=== PATIENT | female | born 1940 | race Caucasian/White ===

== ENCOUNTER 2016-06-13 07:50 | Emergency (ER) | payer MEDICARE, BC ==
[2016-06-13 08:47] VITALS: BP 150/64
--- NOTE | 2016-06-13 09:22 | EDM.PDOC ---
ED HPI DIZZINESS - General Chief Complaint: ENT Problem Stated Complaint: [id number] TOOTH EXTRACTION INFECTION Time Seen by Provider: 06/13/16 09:16 Source of Information: Reports: Patient Exam Limitations: Reports: No limitations - History of Present Illness INITIAL COMMENTS - FREE TEXT/NARRATIVE: Right mandibular molar removed 2 days ago. No prescriptions provided by her dentist. Pain increased since yesterday. Has taken Tylenol 500 mg every 2 hours since last night only. She has not noticed any facial swelling and has had no fever. No viral URI symptoms. Non-smoker. 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 - Related Data Allergies/ADRs: Allergies Allergy/AdvReac Type Severity Reaction Status Date / Time No Known Allergies Allergy Verified 06/13/16 08:55 Home Meds: Home Meds Amoxicillin [Amoxil] 875 mg PO Q12HR #14 tablet 06/13/16 [Rx] Past Medical History - Past Health History Medical/Surgical History: Denies Medical/Surgical History HEENT History: Reports: None Dermatologic History: Reports: Benign melanoma - Past Surgical History HEENT Surgical History: Reports: Oral surgery Other HEENT Surgeries/Procedures: patient had molar extraction 2 days ago Social & Family History - Tobacco Use Smoking Status *Q: Never Smoker Second Hand Smoke Exposure: No - Caffeine Use Caffeine Use: Reports: Coffee - Recreational Drug Use Recreational Drug Use: No ED ROS GENERAL - Review of Systems Review Of Systems: See Below Constitutional: Denies: fever HEENT: Reports: Dental pain, Other (extraction site at right second mandibular molar with small thrombus. No purulence). Denies: Ear pain, Throat pain Respiratory: Reports: No Symptoms ED EXAM, DIZZINESS - Physical Exam Exam: See Below Exam Limited By: No limitations Eye Exam: bilateral eye: normal inspection (conjunctiva moist) Ears: normal external exam Nose: normal inspection Throat/Mouth: Normal lips, Normal voice (normal oral exam, except evidence of recent tooth extraction at right mandibular 2nd moral.) Head Exam: atraumatic, normocephalic Neck: normal inspection, supple, non-tender, full range of motion Neurological: alert, normal mood/affect (normal gait) Psychiatric: normal affect, normal mood Skin Exam: Warm Course - Vital Signs Last Recorded V/S: Last Vital Signs Temp 97.4 F 06/13/16 08:35 Pulse 78 06/13/16 08:35 Resp 16 06/13/16 08:35 BP 150/64 H 06/13/16 08:35 Pulse Ox 100 06/13/16 08:35 - Orders/Labs/Meds Meds: Medications Discontinued Medications Generic Name Dose Route Start Last Admin Trade Name Danna PRN Reason Stop Dose Admin Morphine Sulfate 6 mg 06/13/16 09:29 06/13/16 09:44 Morphine IM 06/13/16 09:30 6 mg ONETIME ONE Administration - Re-Assessments/Exams Free Text/Narrative Re-Assessment/Exam: 06/13/16 09:34 Because of pain I ordered morphine 6 mg for stated weight of 127 pounds Departure - Departure Time of Disposition: 10:10 Disposition: Home, Self-Care 01 Condition: good Clinical Impression: Pain, dental Prescriptions: Amoxicillin [Amoxil] 875 mg PO Q12HR #14 tablet Instructions: Dental Dry Socket, [id number] Forms: ED Department Discharge
[2016-06-13] MEDS ORDERED: Morphine 10 MG/ML Syringe IM ONE (09:29)
== END 2016-06-13 10:30 | disposition home or self-care (01) ==
LOC: DL.ED 07:50
DX: K08.89 Other specified disorders of teeth and supporting structures (principal); Z98.890 Other specified postprocedural states
CPT/HCPCS: 96372; 99282; J2270; 99284

== ENCOUNTER 2017-05-05 07:32 | Day surgery (SDC) | payer MEDICARE, BC ==
[~2017-05-05 07:32] MED LIST: Acetaminophen 325 MG Tab PO PRN; Cataract Ophth Solution EYELF ONE; Moxifloxacin 0.5% Ophth Soln 3 ML Bottle EYELF ONE; Ondansetron 4 MG/2 ML SDV IVPUSH PRN; Phenylephrine 10% Ophth Soln 5 ML Bot EYELF ONE; Phenylephrine 10% Ophth Soln 5 ML Bot EYELF PRN; Povidone-Iodine 5% Sterile Ophth Soln 30 ML Bottle EYELF ONE; Proparacaine 0.5% Ophth Soln 15 ML Bottle EYELF ONE; Sodium Chloride 0.9% 10 ML Syringe FLUSH PRN; Timolol Maleate 0.5% Ophth Soln 5 ML Bottle EYELF ONE
[2017-05-05] MEDS ORDERED: Dexamethasone 4 MG/ML SDV IV ONE (07:33)
[2017-05-05] MEDS ORDERED: Sodium Chloride 0.9% 10 ML Syringe IV ONE (07:33)
[2017-05-05] MEDS ORDERED: Midazolam 1 MG/ML 2 ML SDV IV ONE (07:33)
[2017-05-05] MEDS ORDERED: Tetracaine HCl/PF 0.5% 4 ML Bottle EYELF ONE (08:42)
[2017-05-05] MEDS ORDERED: Povidone-Iodine 5% Sterile Ophth Soln 30 ML Bottle EYELF ONE (08:43)
[2017-05-05] MEDS ORDERED: Apraclonidine 0.5% Ophth Soln 5 ML Bot EYELF ONE (08:43)
[2017-05-05] MEDS ORDERED: Dexamethasone/Neomycin/Polymyxin B Ophth Oint 3.5 GM Tube EYELF ONE (08:44)
[2017-05-05] MEDS ORDERED: Lidocaine 1% 30 ML SDV ONE (08:44)
[2017-05-05] MEDS ORDERED: Vancomycin 500 MG SDV EYELF ONE (08:44)
[2017-05-05] MEDS ORDERED: Chondroitin Sulfate/Hyaluronate Sodium Ophth Inj 0.75 ML Syringe EYELF ONE (08:45)
[2017-05-05] MEDS ORDERED: Balanced Salt Solution Ophth Irrig 500 ML Bottle IOCULAR ONE (08:45)
--- NOTE | 2017-05-05 09:25 | OR ---
DATE: 05/05/2017 PREOPERATIVE DIAGNOSIS: Visually significant mixed cataract, left eye. POSTOPERATIVE DIAGNOSIS: Visually significant mixed cataract, left eye. PROCEDURE: Extracapsular cataract extraction with intraocular lens implant, left eye. ANESTHESIA: Topical/local MAC. COMPLICATIONS: None. INDICATION: Ms. Miller was seen in the clinic. She has complained of difficulty seeing images, difficulty reading, difficulty at distance. Clinical examination reveals visually significant mixed cataract. I explained options. I offered cataract surgery and I explained risks. She is symptomatic and requested surgery to improve vision and function. We discussed implant options. She has requested a monofocal implant. OPERATIVE DESCRIPTION: After informed consent was obtained and the risks, benefits, and alternatives were explained, the patient was brought to the operative suite and topical anesthesia was administered. The patient was then prepped and draped in the sterile fashion and attention was placed on the left eye. A sterile lid speculum was placed into the left eye to allow operative exposure. A full-thickness paracentesis was made in the temporal portion of the operative eye. Preservative-free lidocaine 0.1 mL was injected into the anterior chamber followed by viscoelastic. A full-thickness corneal incision was then made into the anterior chamber. A bent needle cystotome was used to create a small antionette in the anterior capsule. The capsulorrhexis forceps was then used to create a 360-degree curvilinear capsulorrhexis. The nucleus was then removed using a phacoemulsification handpiece and the remaining cortical material was then removed with irrigation and aspiration handpiece. Following removal of the cortical material, the capsular bag was then inspected and noted to be free of any holes or tears. Viscoelastic was then injected into the capsular bag and the intraocular lens was inserted into the capsular bag. The viscoelastic material was then removed from both the anterior and posterior chambers and from behind the IOL. The lens and capsular bag were then reinspected. The IOL was well centered and the capsular bag intact. The wound and paracentesis sites were inspected and hydrated with balanced saline solution. Both were found to be self- sealing. The intraocular pressure was assessed digitally and found to be within normal range. A good red reflex was noted at the completion of the procedure. No complications occurred during the operation. At the completion of the procedure, Maxitrol, Voltaren, and Iopidine drops were placed into the operative eye. A sterile eye shield was placed over the operative eye and the patient was transported to the postoperative recovery area having tolerated the procedure well. Postoperative instructions were given along with a postoperative appointment. The patient was advised to call with any questions or concerns. No complications occurred. [facility] /[id number]
[2017-05-05 13:27] VITALS: BP 114/50
== END 2017-05-05 09:57 | disposition home or self-care (01) ==
LOC: DL.SDS 07:32
PROVIDERS: ATTEND Ophthalmology
DX: H25.812 Combined forms of age-related cataract, left eye (principal); I10 Essential (primary) hypertension; E11.9 Type 2 diabetes mellitus without complications; Z79.84 Long term (current) use of oral hypoglycemic drugs; Z79.899 Other long term (current) drug therapy
CPT/HCPCS: 66984; 82962; A9270; C1780; J1100; J2250; J3370; J7050; 00142

== ENCOUNTER 2017-05-12 07:19 | Day surgery (SDC) | payer MEDICARE, BC ==
[2017-05-12] MEDS ORDERED: Ondansetron 4 MG/2 ML SDV IV ONE (07:20)
[2017-05-12] MEDS ORDERED: Dexamethasone 4 MG/ML SDV IV ONE (07:20)
[2017-05-12] MEDS ORDERED: Midazolam 1 MG/ML 2 ML SDV IV ONE (07:20)
[2017-05-12] MEDS ORDERED: Sodium Chloride 0.9% 10 ML Syringe IV ONE (07:20)
[2017-05-12] MEDS ORDERED: Acetaminophen 325 MG Tab PO PRN (07:30)
[2017-05-12] MEDS ORDERED: Moxifloxacin 0.5% Ophth Soln 3 ML Bottle EYERT ONE (07:30)
[2017-05-12] MEDS ORDERED: Sodium Chloride 0.9% 10 ML Syringe FLUSH PRN (07:30)
[2017-05-12] MEDS ORDERED: Timolol Maleate 0.5% Ophth Soln 5 ML Bottle EYERT ONE (07:30)
[2017-05-12] MEDS ORDERED: Phenylephrine 10% Ophth Soln 5 ML Bot EYERT ONE (07:30)
[2017-05-12] MEDS ORDERED: Ondansetron 4 MG/2 ML SDV IVPUSH PRN (07:30)
[2017-05-12] MEDS ORDERED: Cataract Ophth Solution EYERT ONE (07:30)
[2017-05-12] MEDS ORDERED: Phenylephrine 10% Ophth Soln 5 ML Bot EYERT PRN (07:30)
[2017-05-12] MEDS ORDERED: Proparacaine 0.5% Ophth Soln 15 ML Bottle EYERT ONE (07:30)
[2017-05-12] MEDS ORDERED: Povidone-Iodine 5% Sterile Ophth Soln 30 ML Bottle EYERT ONE ×2 (07:30→08:57)
[2017-05-12] MEDS ORDERED: Tetracaine HCl/PF 0.5% 4 ML Bottle EYERT ONE (08:56)
[2017-05-12] MEDS ORDERED: Apraclonidine 0.5% Ophth Soln 5 ML Bot EYERT ONE (08:58)
[2017-05-12] MEDS ORDERED: Lidocaine 1% 30 ML SDV ONE (08:58)
[2017-05-12] MEDS ORDERED: Chondroitin Sulfate/Hyaluronate Sodium Ophth Inj 0.75 ML Syringe EYERT ONE (08:59)
[2017-05-12] MEDS ORDERED: Dexamethasone/Neomycin/Polymyxin B Ophth Oint 3.5 GM Tube EYERT ONE (08:59)
[2017-05-12] MEDS ORDERED: Vancomycin 500 MG SDV EYERT ONE (08:59)
[2017-05-12] MEDS ORDERED: Balanced Salt Solution Plus Ophth Irrig 500 ML Bottle IOCULAR ONE (09:00)
--- NOTE | 2017-05-12 09:39 | OR ---
DATE: 05/12/2017 PREOPERATIVE DIAGNOSIS: Visually significant mixed cataract, right eye. POSTOPERATIVE DIAGNOSIS: Visually significant mixed cataract, right eye. PROCEDURE: Extracapsular cataract extraction with intraocular lens implant, right eye. ANESTHESIA: Topical/local MAC. COMPLICATIONS: None. INDICATION: Ms. Miller was seen in the clinic. She has complained of a slow progressive change in vision, difficulty sewing, and difficulty reading. Clinical examination reveals visually significant cataract and corneal guttata. I explained options. I offered cataract surgery, and I explained risks including, but not limited to, infection, retinal detachment, loss of vision, corneal decompensation, and need for additional surgery amongst others. We discussed implant options, and I recommended a monofocal implant. She has voiced an understanding with respect to risks. She is symptomatic and unhappy with her vision. She has requested cataract surgery. OPERATIVE DESCRIPTION: After informed consent was obtained and the risks, benefits, and alternatives were explained, the patient was brought to the operative suite and topical anesthesia was administered. The patient was then prepped and draped in the sterile fashion and attention was placed on the right eye. A sterile lid speculum was placed into the right eye to allow operative exposure. A full-thickness paracentesis was made in the temporal portion of the operative eye. Preservative-free lidocaine 0.1 mL was injected into the anterior chamber followed by viscoelastic. A full-thickness corneal incision was then made into the anterior chamber. A bent needle cystotome was used to create a small antionette in the anterior capsule. The capsulorrhexis forceps was then used to create a 360-degree curvilinear capsulorrhexis. The nucleus was then removed using a phacoemulsification handpiece and the remaining cortical material was then removed with irrigation and aspiration handpiece. Following removal of the cortical material, the capsular bag was then inspected and noted to be free of any holes or tears. Viscoelastic was then injected into the capsular bag and the intraocular lens was inserted into the capsular bag. The viscoelastic material was then removed from both the anterior and posterior chambers and from behind the IOL. The lens and capsular bag were then reinspected. The IOL was well centered and the capsular bag intact. The wound and paracentesis sites were inspected and hydrated with balanced saline solution. Both were found to be self- sealing. The intraocular pressure was assessed digitally and found to be within normal range. A good red reflex was noted at the completion of the procedure. No complications occurred during the operation. At the completion of the procedure, Maxitrol, Voltaren, and Iopidine drops were placed into the operative eye. A sterile eye shield was placed over the operative eye and the patient was transported to the postoperative recovery area having tolerated the procedure well. Postoperative instructions were given along with a postoperative appointment. The patient was advised to call with any questions or concerns. [facility] /[id number]
[2017-05-12 10:33] VITALS: BP 123/52
== END 2017-05-12 10:12 | disposition home or self-care (01) ==
LOC: DL.SDS 07:19
PROVIDERS: ATTEND Ophthalmology
DX: H25.811 Combined forms of age-related cataract, right eye (principal); I10 Essential (primary) hypertension; E11.36 Type 2 diabetes mellitus with diabetic cataract; E78.1 Pure hyperglyceridemia; E78.5 Hyperlipidemia, unspecified; Z79.84 Long term (current) use of oral hypoglycemic drugs; Z79.899 Other long term (current) drug therapy
CPT/HCPCS: 66984; A9270; J1100; J2250; J2405; J3370; J7050; 00142; V2632

== ENCOUNTER 2018-07-15 18:01 | Emergency (ER) | payer MEDICARE, BC ==
[2018-07-15] MEDS ORDERED: Sodium Chloride 0.9% 10 ML Syringe FLUSH PRN (18:15)
[2018-07-15 18:23] VITALS: BP 142/57
[2018-07-15 18:41] LABS: ANION GAP 16.5; CHLORIDE,CL 101 mmol/L (101-111); SODIUM,NA 135 mmol/L (135-145)
--- NOTE | 2018-07-15 18:57 | EDM.PDOC ---
ED HPI GENERAL MEDICAL PROBLEM - General Chief Complaint: Neurological Problem Stated Complaint: disorientated Time Seen by Provider: 07/15/18 18:24 Source of Information: Reports: Family, RN, RN Notes Reviewed History Limitations: Reports: Altered Mental Status - History of Present Illness INITIAL COMMENTS - FREE TEXT/NARRATIVE: Pt to ER per wheelchair with daughter. Daughter states the patient suddenly c/o pain, but could not tell her daughter where she had pain. Dgt states the patient continues to repeat "I don't know" when asked questions, and has had her eyes closed. Upon arrival, patient states "I don't know" several times, and is not obeying command. Dgt denies any trauma. Last known well approximately 25 minutes prior to arrival. Patient was at [facility] with dgt and normal without c/o. Onset: Today, Sudden - Related Data Allergies Allergy/AdvReac Type Severity Reaction Status Date / Time No Known Allergies Allergy Verified 05/12/17 07:44 Home Meds: Home Meds Estradiol 2 mg PO DAILY 05/03/17 [History] Gabapentin [Neurontin] 300 mg PO ASDIRECTED 05/03/17 [History] LORazepam 1 mg PO BID PRN 05/03/17 [History] Lisinopril 5 mg PO BEDTIME 05/03/17 [History] Multivitamin [Multivitamins] 1 tab PO DAILY 05/03/17 [History] Temazepam 1 tab PO BEDTIME PRN 05/03/17 [History] Tretinoin [Retin-A 0.025% Cream] 1 squirt TOP BEDTIME 05/03/17 [History] amLODIPine [Norvasc] 5 mg PO DAILY 05/03/17 [History] hydroCHLOROthiazide [Hydrochlorothiazide] 25 mg PO DAILY 05/03/17 [History] metFORMIN [Glucophage] 1 tab PO BID 05/03/17 [History] Gwpe-Awzy-Gybby [Cataract Opthalmic Solution] 1 drop EYEBOTH ASDIRECTED [History] Past Medical History - Past Health History Medical/Surgical History: Denies Medical/Surgical History HEENT History: Reports: Cataract Cardiovascular History: Reports: High Cholesterol, Hypertension Respiratory History: Reports: None Gastrointestinal History: Reports: None Genitourinary History: Reports: None 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: Musculoskeletal History: Reports: None Neurological History: Reports: Neuropathy, Peripheral, Other (See Below) Other Neuro History: restless leg syndrome Psychiatric History: Reports: Depression Endocrine/Metabolic History: Reports: Diabetes, Type II, Osteopenia Hematologic History: Reports: None Immunologic History: Reports: None Oncologic (Cancer) History: Reports: None Dermatologic History: Reports: Benign Melanoma - Infectious Disease History Infectious Disease History: Reports: Chicken Pox, Measles, Mumps - Past Surgical History Head Surgeries/Procedures: Reports: None HEENT Surgical History: Reports: Cataract Surgery, Oral Surgery Other HEENT Surgeries/Procedures: patient had molar extraction 2 days ago Cardiovascular Surgical History: Reports: None Respiratory Surgical History: Reports: None GI Surgical History: Reports: Appendectomy, Colonoscopy, Other (See Below) Other GI Surgeries/Procedures: abdominoplasty Female Surgical History: Reports: Hysterectomy, Tubal Ligation Neurological Surgical History: Reports: None Musculoskeletal Surgical History: Reports: Carpal Tunnel, Shoulder Surgery Social & Family History - Tobacco Use Smoking Status *Q: Never Smoker - Caffeine Use Caffeine Use: Reports: Coffee Other Caffeine Use: 1.5 cups daily - Recreational Drug Use Recreational Drug Use: No ED ROS GENERAL - Review of Systems Review Of Systems: ROS reveals no pertinent complaints other than HPI. ED EXAM, NEURO - Physical Exam Exam: See Below Exam Limited By: Altered Mental Status General Appearance: Moderate Distress (hyperventilating) Eye Exam: Bilateral Eye: EOMI, PERRL (3 sluggish) Ears: Normal External Exam, Normal Canal, Hearing Grossly Normal, Normal TMs Nose: Normal Inspection, Normal Mucosa, No Blood Throat/Mouth: Normal Inspection, Normal Voice, No Airway Compromise Head Exam: Atraumatic, Normocephalic Neck: Normal Inspection, Supple, Non-Tender Respiratory/Chest: No Respiratory Distress, Lungs Clear, Normal Breath Sounds, No Accessory Muscle Use, Chest Non-Tender, Other (tachypneic) Cardiovascular: Normal Peripheral Pulses, Regular Rate, Rhythm, No Edema, No Gallop, No JVD, No Murmur, No Rub GI/Abdominal: Normal Bowel Sounds, Soft, Non-Tender, No Organomegaly, No Distention, No Abnormal Bruit, No Mass (Female) Exam: Deferred Rectal (Female) Exam: Deferred Neurological: Abnormal Gait, Withdraws to Pain, Abnormal Light Touch Back Exam: Normal Inspection Extremities: Normal Inspection Psychiatric: Anxious Skin Exam: Warm, Dry, Intact, Normal Color, No Rash Course - Vital Signs Last Recorded V/S: Last Vital Signs Temp 97.3 F 07/15/18 18:22 Pulse 70 07/15/18 18:22 Resp 22 H 07/15/18 18:22 BP 142/57 H 07/15/18 18:22 Pulse Ox 100 07/15/18 18:22 - Orders/Labs/Meds Labs: Laboratory Tests 07/15/18 07/15/18 07/15/18 Range/Units 18:11 18:15 18:15 WBC 9.5 (5.0-10.0) 10^3/uL RBC 4.29 (4.2-5.4) 10^6/uL Hgb 13.5 (12.0-16.0) g/dL Hct 39.0 (37.0-47.0) % MCV 90.9 (80-100) fL MCH 31.5 (27.0-34.0) pg MCHC 34.6 (33.0-35.0) g/dL Plt Count 272 (150-450) 10^3/uL Neut % (Auto) 53.1 (42.2-75.2) % Lymph % (Auto) 36.9 (20.5-50.1) % Riley % (Auto) 7.9 (2-8) % Eos % (Auto) 1.9 (1.0-3.0) % Baso % (Auto) 0.2 (0.0-1.0) % PT (9.0-12.0) SEC INR (0.9-1.2) Sodium 135 (135-145) mmol/L Potassium 3.5 L (3.6-5.0) mmol/L Chloride 101 (101-111) mmol/L Carbon Dioxide 21.0 (21.0-31.0) mmol/L Anion Gap 16.5 BUN 13 (7-18) mg/dL Creatinine 0.8 (0.6-1.3) mg/dL Est Cr Clr Drug Dosing 53.83 mL/min Estimated GFR (MDRD) > 60 BUN/Creatinine Ratio 16.25 Glucose 139 H (74-105) mg/dL POC Glucose 143 H (83-110) mg/dl Calcium 9.1 (8.4-10.2) mg/dl Total Bilirubin 0.8 (0.2-1.0) mg/dL AST 21 (10-42) IU/L ALT 20 (10-60) IU/L Alkaline Phosphatase 73 (42-121) IU/L Troponin I (0.00-0.02) ng/ml Total Protein 7.2 (6.7-8.2) g/dl Albumin 3.9 (3.2-5.5) g/dl Globulin 3.3 Albumin/Globulin Ratio 1.18 Urine Color (YELLOW) Urine Appearance (CLEAR) Urine pH (5.0-9.0) Ur Specific [place] (1.005-1.030) Urine Protein (NEGATIVE) Urine Glucose (UA) (NEGATIVE) Urine Ketones (NEGATIVE) Urine Occult Blood (NEGATIVE) Urine Nitrite (NEGATIVE) Urine Bilirubin (NEGATIVE) Urine Urobilinogen (0.2-1.0) mg/dL Ur Leukocyte Esterase (NEGATIVE) Urine RBC /HPF Urine WBC (0-5/HPF) /HPF Ur Epithelial Cells (NOT SEEN) /HPF Urine Bacteria (0-FEW/HPF) /HPF Urine Mucus (NOT SEEN) /LPF Urine Opiates Screen (NEGATIVE) Ur Oxycodone Screen (NEGATIVE) Urine Methadone Screen (NEGATIVE) Ur Barbiturates Screen (NEGATIVE) U Tricyclic Antidepress (NEGATIVE) Ur Phencyclidine Scrn (NEGATIVE) Ur Amphetamine Screen (NEGATIVE) U Methamphetamines Scrn (NEGATIVE) Urine MDMA Screen (NEGATIVE) U Benzodiazepines Scrn (NEGATIVE) Urine Cocaine Screen (NEGATIVE) U Marijuana (THC) Screen (NEGATIVE) Ethyl Alcohol < 5 mg/dL 07/15/18 07/15/18 07/15/18 Range/Units 18:15 18:15 18:31 WBC (5.0-10.0) 10^3/uL RBC (4.2-5.4) 10^6/uL Hgb (12.0-16.0) g/dL Hct (37.0-47.0) % MCV (80-100) fL MCH (27.0-34.0) pg MCHC (33.0-35.0) g/dL Plt Count (150-450) 10^3/uL Neut % (Auto) (42.2-75.2) % Lymph % (Auto) (20.5-50.1) % Riley % (Auto) (2-8) % Eos % (Auto) (1.0-3.0) % Baso % (Auto) (0.0-1.0) % PT 9.4 (9.0-12.0) SEC INR 0.9 (0.9-1.2) Sodium (135-145) mmol/L Potassium (3.6-5.0) mmol/L Chloride (101-111) mmol/L Carbon Dioxide (21.0-31.0) mmol/L Anion Gap BUN (7-18) mg/dL Creatinine (0.6-1.3) mg/dL Est Cr Clr Drug Dosing mL/min Estimated GFR (MDRD) BUN/Creatinine Ratio Glucose (74-105) mg/dL POC Glucose (83-110) mg/dl Calcium (8.4-10.2) mg/dl Total Bilirubin (0.2-1.0) mg/dL AST (10-42) IU/L ALT (10-60) IU/L Alkaline Phosphatase (42-121) IU/L Troponin I < 0.02 (0.00-0.02) ng/ml Total Protein (6.7-8.2) g/dl Albumin (3.2-5.5) g/dl Globulin Albumin/Globulin Ratio Urine Color Yellow (YELLOW) Urine Appearance Slightly cloudy (CLEAR) Urine pH 7.5 (5.0-9.0) Ur Specific [place] 1.015 (1.005-1.030) Urine Protein Negative (NEGATIVE) Urine Glucose (UA) Negative (NEGATIVE) Urine Ketones Trace H (NEGATIVE) Urine Occult Blood Negative (NEGATIVE) Urine Nitrite Negative (NEGATIVE) Urine Bilirubin Negative (NEGATIVE) Urine Urobilinogen 0.2 (0.2-1.0) mg/dL Ur Leukocyte Esterase Small H (NEGATIVE) Urine RBC 0-5 /HPF Urine WBC 5-10 H (0-5/HPF) /HPF Ur Epithelial Cells Moderate H (NOT SEEN) /HPF Urine Bacteria Moderate H (0-FEW/HPF) /HPF Urine Mucus Many H (NOT SEEN) /LPF Urine Opiates Screen (NEGATIVE) Ur Oxycodone Screen (NEGATIVE) Urine Methadone Screen (NEGATIVE) Ur Barbiturates Screen (NEGATIVE) U Tricyclic Antidepress (NEGATIVE) Ur Phencyclidine Scrn (NEGATIVE) Ur Amphetamine Screen (NEGATIVE) U Methamphetamines Scrn (NEGATIVE) Urine MDMA Screen (NEGATIVE) U Benzodiazepines Scrn (NEGATIVE) Urine Cocaine Screen (NEGATIVE) U Marijuana (THC) Screen (NEGATIVE) Ethyl Alcohol mg/dL 07/15/18 Range/Units 18:31 WBC (5.0-10.0) 10^3/uL RBC (4.2-5.4) 10^6/uL Hgb (12.0-16.0) g/dL Hct (37.0-47.0) % MCV (80-100) fL MCH (27.0-34.0) pg MCHC (33.0-35.0) g/dL Plt Count (150-450) 10^3/uL Neut % (Auto) (42.2-75.2) % Lymph % (Auto) (20.5-50.1) % Riley % (Auto) (2-8) % Eos % (Auto) (1.0-3.0) % Baso % (Auto) (0.0-1.0) % PT (9.0-12.0) SEC INR (0.9-1.2) Sodium (135-145) mmol/L Potassium (3.6-5.0) mmol/L Chloride (101-111) mmol/L Carbon Dioxide (21.0-31.0) mmol/L Anion Gap BUN (7-18) mg/dL Creatinine (0.6-1.3) mg/dL Est Cr Clr Drug Dosing mL/min Estimated GFR (MDRD) BUN/Creatinine Ratio Glucose (74-105) mg/dL POC Glucose (83-110) mg/dl Calcium (8.4-10.2) mg/dl Total Bilirubin (0.2-1.0) mg/dL AST (10-42) IU/L ALT (10-60) IU/L Alkaline Phosphatase (42-121) IU/L Troponin I (0.00-0.02) ng/ml Total Protein (6.7-8.2) g/dl Albumin (3.2-5.5) g/dl Globulin Albumin/Globulin Ratio Urine Color (YELLOW) Urine Appearance (CLEAR) Urine pH (5.0-9.0) Ur Specific [place] (1.005-1.030) Urine Protein (NEGATIVE) Urine Glucose (UA) (NEGATIVE) Urine Ketones (NEGATIVE) Urine Occult Blood (NEGATIVE) Urine Nitrite (NEGATIVE) Urine Bilirubin (NEGATIVE) Urine Urobilinogen (0.2-1.0) mg/dL Ur Leukocyte Esterase (NEGATIVE) Urine RBC /HPF Urine WBC (0-5/HPF) /HPF Ur Epithelial Cells (NOT SEEN) /HPF Urine Bacteria (0-FEW/HPF) /HPF Urine Mucus (NOT SEEN) /LPF Urine Opiates Screen Negative (NEGATIVE) Ur Oxycodone Screen Negative (NEGATIVE) Urine Methadone Screen Negative (NEGATIVE) Ur Barbiturates Screen Negative (NEGATIVE) U Tricyclic Antidepress Negative (NEGATIVE) Ur Phencyclidine Scrn Negative (NEGATIVE) Ur Amphetamine Screen Negative (NEGATIVE) U Methamphetamines Scrn Negative (NEGATIVE) Urine MDMA Screen Negative (NEGATIVE) U Benzodiazepines Scrn Positive H (NEGATIVE) Urine Cocaine Screen Negative (NEGATIVE) U Marijuana (THC) Screen Negative (NEGATIVE) Ethyl Alcohol mg/dL Meds: Medications Discontinued Medications Generic Name Dose Route Start Last Admin Trade Name Freq PRN Reason Stop Dose Admin Alteplase, Recombinant 50.4 mg 07/15/18 18:45 07/15/18 18:51 Activase IV 50.4 mg .INFUSION JONEL Administration Alteplase, Recombinant 5.6 mg 07/15/18 18:45 07/15/18 18:49 Activase IVPUSH 5.6 mg .BOLUS JONEL Administration Sodium Chloride 10 ml 07/15/18 18:15 Saline Flush FLUSH ASDIRECTED PRN Keep Vein Open - Radiology Interpretation Free Text/Narrative:: Head CT: FINDINGS: No abnormal foci of altered attenuation within the cerebral or cerebellar parenchyma. No intracranial mass lesion or evidence for acute territorial infarct. There is mild symmetric enlargement of the ventricles and sulci bilaterally, consistent with age-related brain atrophy. No midline shift or hydrocephalus. No abnormal extraaxial fluid or air collection; no intracranial hemorrhage. The visualized paranasal sinuses, orbits, mastoid air cells, skull, and scalp are unremarkable. IMPRESSION: --Mild age-related brain atrophy. --Otherwise normal noncontrast head CT scan. ASSESSMENT: [place] Stroke Program Early CT Score (ASPECTS) = 10. Thank you for allowing us to participate in the care of your patient. Dictated and Authenticated by: Kwesi Tena MD 07/15/2018 6:30 PM Central Time ([place] & [place]) See Rad report - Re-Assessments/Exams Free Text/Narrative Re-Assessment/Exam: 07/20/18 03:56 Discussed patient case with Dr. Hodges who states that TPA should be given at this time, and the patient transferred to [facility] for [facility] evaluation. Departure - Departure Time of Disposition: 19:10 Disposition: DC/Tfer to Acute Hospital 02 Clinical Impression: Suspected stroke patient last known to be well less than 2 hours ago - Discharge Information *PRESCRIPTION DRUG MONITORING PROGRAM REVIEWED*: No *COPY OF PRESCRIPTION DRUG MONITORING REPORT IN PATIENT PADMA: No Referrals: Patricia Villela PA [Primary Care Provider] - Forms: ED Department Discharge
== END 2018-07-15 19:05 ==
LOC: DL.ED 18:01
DX: R41.82 Altered mental status, unspecified (principal); E78.00 Pure hypercholesterolemia, unspecified; E11.40 Type 2 diabetes mellitus with diabetic neuropathy, unspecified; Z79.84 Long term (current) use of oral hypoglycemic drugs; Z79.899 Other long term (current) drug therapy
CPT/HCPCS: 36415; 51702; 70450; 80053; 80305-QW; 81001; 82962; 84484; 85025; 85610; 87086; 93005; 96374; 96376; 99285-25; G0480; J2997

== ENCOUNTER 2020-01-20 14:13 | Emergency (ER) | payer MEDICARE, BC ==
[2020-01-20 14:30] VITALS: BP 158/68; PULSE 73
[2020-01-20] MEDS ORDERED: methylPREDNISolone Sodium Succinate 125 MG/2 ML SDV IVPUSH ONE (14:44)
[2020-01-20] MEDS ORDERED: Famotidine 20 MG/2 ML SDV IVPUSH ONE (14:44)
[2020-01-20] MEDS ORDERED: diphenhydrAMINE 50 MG/ML SDV IVPUSH ONE (14:44)
--- NOTE | 2020-01-20 14:52 | EDM.PDOC ---
<Jackelyn Mendoza - Last Filed: 01/20/20 15:41> ED HPI GENERAL MEDICAL PROBLEM - General Chief Complaint: Skin Complaint Stated Complaint: RASH ON CHEST Time Seen by Provider: 01/20/20 14:35 Source of Information: Reports: Patient, RN, RN Notes Reviewed History Limitations: Reports: No Limitations - History of Present Illness INITIAL COMMENTS - FREE TEXT/NARRATIVE: pt to ER with c/o rash to chest. states it began developing last evening. states she used hydrocortisone cream and benadryl without relief. reports significant itching and burning. denies pain or pain to touch. denies SOB, denies chest pain. reports no new lotions, soaps, detergents, jewelry, or foods. states she was in a [employer] clothing store yesterday trying on clothing, otherwise nothing out of her regular routine. Onset: Gradual Chest Pain Score (Numeric/FACES): 3 - Related Data Allergies Allergy/AdvReac Type Severity Reaction Status Date / Time No Known Allergies Allergy Verified 05/12/17 07:44 Home Meds: Home Meds Gabapentin [Neurontin] 300 mg PO ASDIRECTED 05/03/17 [History] LORazepam 1 mg PO BID PRN 05/03/17 [History] Lisinopril 5 mg PO BEDTIME 05/03/17 [History] Multivitamin [Multivitamins] 1 tab PO DAILY 05/03/17 [History] Temazepam 1 tab PO BEDTIME PRN 05/03/17 [History] Tretinoin [Retin-A 0.025% Cream] 1 squirt TOP BEDTIME 05/03/17 [History] amLODIPine [Norvasc] 5 mg PO DAILY 05/03/17 [History] estradioL [Estradiol] 2 mg PO DAILY 05/03/17 [History] hydroCHLOROthiazide [Hydrochlorothiazide] 25 mg PO DAILY 05/03/17 [History] metFORMIN [Glucophage] 1 tab PO BID 05/03/17 [History] Fycd-[id number]-[id number] [Cataract Opthalmic Solution] 1 drop EYEBOTH ASDIRECTED 05/11/17 [History] Past Medical History - Past Health History Medical/Surgical History: Denies Medical/Surgical History HEENT History: Reports: Cataract Cardiovascular History: Reports: High Cholesterol, Hypertension Respiratory History: Reports: None Gastrointestinal History: Reports: None Genitourinary History: Reports: None 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: Musculoskeletal History: Reports: None Neurological History: Reports: Neuropathy, Peripheral, Other (See Below) Other Neuro History: restless leg syndrome Psychiatric History: Reports: Depression Endocrine/Metabolic History: Reports: Diabetes, Type II, Osteopenia Hematologic History: Reports: None Immunologic History: Reports: None Oncologic (Cancer) History: Reports: None Dermatologic History: Reports: Benign Melanoma - Infectious Disease History Infectious Disease History: Reports: Chicken Pox, Measles, Mumps - Past Surgical History Head Surgeries/Procedures: Reports: None HEENT Surgical History: Reports: Cataract Surgery, Oral Surgery Other HEENT Surgeries/Procedures: patient had molar extraction 2 days ago Cardiovascular Surgical History: Reports: None Respiratory Surgical History: Reports: None GI Surgical History: Reports: Appendectomy, Colonoscopy, Other (See Below) Other GI Surgeries/Procedures: abdominoplasty Female Surgical History: Reports: Hysterectomy, Tubal Ligation Neurological Surgical History: Reports: None Musculoskeletal Surgical History: Reports: Carpal Tunnel, Shoulder Surgery Social & Family History - Family History Family Medical History: No Pertinent Family History - Tobacco Use Tobacco Use Status *Q: Never Tobacco User Second Hand Smoke Exposure: No - Caffeine Use Caffeine Use: Reports: Coffee Other Caffeine Use: 1.5 cups daily - Recreational Drug Use Recreational Drug Use: No ED ROS GENERAL - Review of Systems Review Of Systems: Comprehensive ROS is negative, except as noted in HPI. ED EXAM, SKIN/RASH Exam: See Below Exam Limited By: No Limitations General Appearance: Alert, WD/WN, No Apparent Distress Eye Exam: Bilateral Eye: EOMI, Normal Inspection Ears: Normal External Exam, Normal Canal, Hearing Grossly Normal, Normal TMs Nose: Normal Inspection, Normal Mucosa, No Blood Throat/Mouth: Normal Inspection, Normal Lips, Normal Teeth, Normal Gums, Normal Oropharynx, Normal Voice, No Airway Compromise Head: Atraumatic, Normocephalic Neck: Normal Inspection, Supple, Non-Tender, Full Range of Motion Respiratory/Chest: No Respiratory Distress, Lungs Clear, Normal Breath Sounds, No Accessory Muscle Use, Chest Non-Tender Cardiovascular: Normal Peripheral Pulses, Regular Rate, Rhythm, No Edema, No Murmur GI/Abdominal: Normal Bowel Sounds, Soft, Non-Tender (Female) Exam: Deferred Rectal (Female) Exam: Deferred Back Exam: Normal Inspection, Full Range of Motion Extremities: Normal Inspection, Normal Range of Motion, Non-Tender, No Pedal Edema, Normal Capillary Refill Neurological: Alert, Oriented, Normal Cognition, Normal Gait, Normal Reflexes Psychiatric: Normal Affect, Normal Mood Skin: Dry, Intact, Erythema, Rash. No: No Rash Location, Skin: Neck, Chest. No: Face, Back, Upper Extremity, Right, Upper Extremity, Left, Axillary Characteristics: Urticarial, Erythematous Associated features: Warmth Lymphatic: No Adenopathy Departure - Departure Time of Disposition: 15:41 Disposition: Home, Self-Care 01 Condition: Good Clinical Impression: Pruritic rash Atopic dermatitis Qualifiers: Atopic dermatitis type: unspecified Qualified Code(s): L20.9 - Atopic dermatitis, unspecified - Discharge Information *PRESCRIPTION DRUG MONITORING PROGRAM REVIEWED*: No *COPY OF PRESCRIPTION DRUG MONITORING REPORT IN PATIENT PADMA: No Instructions: Pruritus, Rash, Adult, Contact Dermatitis, [id number] Forms: ED Department Discharge Additional Instructions: RX: Zyrtec 10 mg by mouth twice daily x 5 days Prednisone 20 mg, take 2 tabs daily with food x 5 days. Avoid source of reaction if able to identify. Return to ER if symptoms worsen or you develop shortness of breath. Follow-up with you PCP if symptoms become recurrent. Sepsis Event Note (ED) - Evaluation Sepsis Screening Result: No Definite Risk <Lacho Mustafa - Last Filed: 01/20/20 15:42> Course - Vital Signs Last Recorded V/S: Last Vital Signs Temp 98.9 F 01/20/20 14:29 Pulse 73 01/20/20 14:29 Resp 18 01/20/20 14:29 BP 158/68 H 01/20/20 14:29 Pulse Ox 97 01/20/20 14:29 - Orders/Labs/Meds Meds: Medications Discontinued Medications Generic Name Dose Route Start Last Admin Trade Name Freq PRN Reason Stop Dose Admin Diphenhydramine HCl 25 mg 01/20/20 14:44 01/20/20 15:20 Benadryl IVPUSH 01/20/20 14:45 25 mg ONETIME ONE Administration Famotidine 20 mg 01/20/20 14:44 01/20/20 15:16 Pepcid IVPUSH 01/20/20 14:45 20 mg ONETIME ONE Administration Methylprednisolone Sodium Succinate 125 mg 01/20/20 14:44 01/20/20 15:18 Solu-Medrol IVPUSH 01/20/20 14:45 125 mg ONETIME ONE Administration - Re-Assessments/Exams Free Text/Narrative Re-Assessment/Exam: 01/20/20 15:27 I personally performed or re-performed the physical examination and medical decision making. I have verified all student documentation or findings, including history, physical exam and/or medical decision making. Sepsis Event Note (ED) - Focused Exam Vital Signs: Vital Signs Temp Pulse Resp BP Pulse Ox 01/20/20 14:29 98.9 F 73 18 158/68 H 97
== END 2020-01-20 15:44 | disposition home or self-care (01) ==
LOC: DL.ED 14:13
DX: L20.9 Atopic dermatitis, unspecified (principal); I10 Essential (primary) hypertension; E78.00 Pure hypercholesterolemia, unspecified; E11.42 Type 2 diabetes mellitus with diabetic polyneuropathy; F32.9 Major depressive disorder, single episode, unspecified; Z90.49 Acquired absence of other specified parts of digestive tract; Z90.710 Acquired absence of both cervix and uterus; Z98.51 Tubal ligation status; Z79.84 Long term (current) use of oral hypoglycemic drugs; Z79.899 Other long term (current) drug therapy
CPT/HCPCS: 96374; 96375; 99282; J1200; J2930; J3490

== ENCOUNTER 2020-03-02 13:36 | Emergency (ER) | payer MEDICARE, BC ==
[2020-03-02 13:50] VITALS: BP 132/64; PULSE 74
--- NOTE | 2020-03-02 14:31 | EDM.PDOC ---
ED HPI GENERAL MEDICAL PROBLEM - General Chief Complaint: General Stated Complaint: NAUSEA, VOMITING, STARTED NEW MED YESTERDAY Time Seen by Provider: 03/02/20 14:31 Source of Information: Reports: Patient, RN, RN Notes Reviewed History Limitations: Reports: No Limitations - History of Present Illness INITIAL COMMENTS - FREE TEXT/NARRATIVE: Pt is a 79 year old female who presents to the ER with c/o nausea and vomiting, diarrhea (yesterday), dizziness, and feeling of weakness since yesterday. Patient states she began taking hydrocodone for neuropathy to her feet, and trileptal for neuropathy and restless leg syndrome. She states she began these medications on evening. Patient denies fever or chills, chest pains or SOB, urinary sx such as frequency, urgency, burning with urination. Patient states she has not passed out. Pt does admit to Nausea, vomiting x1, and diarrhea yesterday. Onset: Gradual - Related Data Allergies Allergy/AdvReac Type Severity Reaction Status Date / Time No Known Allergies Allergy Verified 03/02/20 13:50 Home Meds: Home Meds Gabapentin [Neurontin] 300 mg PO ASDIRECTED 05/03/17 [History] LORazepam 1 mg PO BID PRN 05/03/17 [History] Lisinopril 5 mg PO BEDTIME 05/03/17 [History] Multivitamin [Multivitamins] 1 tab PO DAILY 05/03/17 [History] Temazepam 1 tab PO BEDTIME PRN 05/03/17 [History] Tretinoin [Retin-A 0.025% Cream] 1 squirt TOP BEDTIME 05/03/17 [History] amLODIPine [Norvasc] 5 mg PO DAILY 05/03/17 [History] estradioL [Estradiol] 2 mg PO DAILY 05/03/17 [History] hydroCHLOROthiazide [Hydrochlorothiazide] 25 mg PO DAILY 05/03/17 [History] metFORMIN [Glucophage] 1 tab PO BID 05/03/17 [History] Ecra-Vgyi-Wxcrh [Cataract Opthalmic Solution] 1 drop EYEBOTH ASDIRECTED 05/11/17 [History] Hydrocodone/Acetaminophen [Hydrocodone-Acetamin 5-325 mg] 2 tab PO ASDIRECTED 03/02/20 [History] OXcarbazepine [Trileptal] 300 mg PO DAILY 03/02/20 [History] Past Medical History - Past Health History Medical/Surgical History: Denies Medical/Surgical History HEENT History: Reports: Cataract Cardiovascular History: Reports: High Cholesterol, Hypertension Respiratory History: Reports: None Gastrointestinal History: Reports: None Genitourinary History: Reports: None 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: Musculoskeletal History: Reports: None Neurological History: Reports: Neuropathy, Peripheral, Other (See Below) Other Neuro History: restless leg syndrome Psychiatric History: Reports: Depression Endocrine/Metabolic History: Reports: Diabetes, Type II, Osteopenia Hematologic History: Reports: None Immunologic History: Reports: None Oncologic (Cancer) History: Reports: None Dermatologic History: Reports: Benign Melanoma - Infectious Disease History Infectious Disease History: Reports: Chicken Pox, Measles, Mumps - Past Surgical History Head Surgeries/Procedures: Reports: None HEENT Surgical History: Reports: Cataract Surgery, Oral Surgery Other HEENT Surgeries/Procedures: patient had molar extraction 2 days ago Cardiovascular Surgical History: Reports: None Respiratory Surgical History: Reports: None GI Surgical History: Reports: Appendectomy, Colonoscopy, Other (See Below) Other GI Surgeries/Procedures: abdominoplasty Female Surgical History: Reports: Hysterectomy, Tubal Ligation Neurological Surgical History: Reports: None Musculoskeletal Surgical History: Reports: Carpal Tunnel, Shoulder Surgery Social & Family History - Family History Family Medical History: No Pertinent Family History - Tobacco Use Tobacco Use Status *Q: Never Tobacco User - Caffeine Use Caffeine Use: Reports: Coffee Other Caffeine Use: 1.5 cups daily - Recreational Drug Use Recreational Drug Use: No ED ROS GENERAL - Review of Systems Review Of Systems: Comprehensive ROS is negative, except as noted in HPI. ED EXAM, GENERAL - Physical Exam Exam: See Below Exam Limited By: No Limitations General Appearance: Alert, WD/WN, No Apparent Distress Course - Vital Signs Last Recorded V/S: Last Vital Signs Temp 96 F L 03/02/20 13:45 Pulse 74 03/02/20 13:45 Resp 14 03/02/20 13:45 BP 132/64 03/02/20 13:45 Pulse Ox 100 03/02/20 13:45 - Orders/Labs/Meds Orders: Active Orders 24 hr Category Date Time Status EKG Documentation Completion [RC] STAT Care 03/02/20 14:40 Active Labs: Laboratory Tests 01/16/21 01/16/21 01/16/21 Range/Units 14:49 14:49 14:59 WBC 8.1 (5.0-10.0) 10^3/uL RBC 3.83 L (4.2-5.4) 10^6/uL Hgb 12.6 (12.0-16.0) g/dL Hct 36.6 L (37.0-47.0) % MCV 95.6 D (80-100) fL MCH 32.9 (27.0-34.0) pg MCHC 34.4 (33.0-35.0) g/dL Plt Count 239 (150-450) 10^3/uL Neut % (Auto) 56.6 (42.2-75.2) % Lymph % (Auto) 34.7 (20.5-50.1) % [place] % (Auto) 8.1 H (2-8) % Eos % (Auto) 0.4 L (1.0-3.0) % Baso % (Auto) 0.2 (0.0-1.0) % Sodium 135 L (136-145) mmol/L Potassium 4.1 (3.5-5.1) mmol/L Chloride 99 (98-107) mmol/L Carbon Dioxide 29 (21-32) mmol/L Anion Gap 11.1 (7-13) mEq/L BUN 26 H (7-18) mg/dL Creatinine 1.21 H (0.55-1.02) mg/dL Est Cr Clr Drug Dosing 30.31 mL/min Estimated GFR (MDRD) 43 BUN/Creatinine Ratio 21.5 (No establ ref range) Glucose 128 H (74-99) mg/dL Calcium 10.0 (8.5-10.1) mg/dL Total Bilirubin 0.4 (0.2-1.0) mg/dL AST 20 (15-37) U/L ALT 31 (14-59) U/L Alkaline Phosphatase 67 (46-116) U/L Troponin I < 0.017 (0.000-0.056) ng/mL Total Protein 7.0 (6.4-8.2) g/dL Albumin 3.8 (3.4-5.0) g/dL Globulin 3.2 Albumin/Globulin Ratio 1.2 Urine Color Yellow (YELLOW) Urine Appearance Clear (CLEAR) Urine pH 5.5 (5.0-9.0) Ur Specific [place] >= 1.030 (1.005-1.030) Urine Protein Negative (NEGATIVE) Urine Glucose (UA) Negative (NEGATIVE) Urine Ketones Trace H (NEGATIVE) Urine Occult Blood Negative (NEGATIVE) Urine Nitrite Negative (NEGATIVE) Urine Bilirubin Negative (NEGATIVE) Urine Urobilinogen 0.2 (0.2-1.0) mg/dL Ur Leukocyte Esterase Negative (NEGATIVE) Departure - Departure Time of Disposition: 16:02 Disposition: Home, Self-Care 01 Condition: Fair Clinical Impression: Dizziness, Gastroenteritis, Intolerance of drug - Discharge Information *PRESCRIPTION DRUG MONITORING PROGRAM REVIEWED*: No *COPY OF PRESCRIPTION DRUG MONITORING REPORT IN PATIENT PADMA: No Instructions: Viral Gastroenteritis, Adult, [id number], Food Choices to Help Relieve Diarrhea, Adult, Dizziness, [id number] Forms: ED Department Discharge Additional Instructions: Drink plenty of water Take food with Hydrocodone Follow up with your primary care facility or you neurologist if problems persist Return to the ER with any worsening of problems Sepsis Event Note (ED) - Evaluation Sepsis Screening Result: No Definite Risk - Focused Exam Vital Signs: Vital Signs Temp Pulse Resp BP Pulse Ox 03/02/20 13:45 96 F L 74 14 132/64 100 - My Orders Last 24 Hours: My Active Orders 03/02/20 14:40 EKG Documentation Completion [RC] STAT - Assessment/Plan Last 24 Hours: My Active Orders 03/02/20 14:40 EKG Documentation Completion [RC] STAT
[2020-03-02 15:33] LABS: ANION GAP 11.1 mEq/L (7-13); CHLORIDE,CL 99 mmol/L (98-107); SODIUM,NA 135 mmol/L (136-145)
== END 2020-03-02 16:06 | disposition home or self-care (01) ==
LOC: DL.ED 13:36
DX: K52.9 Noninfective gastroenteritis and colitis, unspecified (principal); R42 Dizziness and giddiness; T40.2X5A Adverse effect of other opioids, initial encounter; I10 Essential (primary) hypertension; E11.42 Type 2 diabetes mellitus with diabetic polyneuropathy; Z79.899 Other long term (current) drug therapy
CPT/HCPCS: 36415; 80053; 81003; 84484; 85025; 93005; 99283; 99284-25

== ENCOUNTER 2020-09-06 09:28 | Emergency (ER) | payer MEDICARE, BC ==
[2020-09-06 11:14] VITALS: BP 141/67; PULSE 65
--- NOTE | 2020-09-06 11:28 | EDM.PDOC ---
ED HPI GENERAL MEDICAL PROBLEM - General Chief Complaint: Skin Complaint Stated Complaint: RIGHT ARM BITES UNKNOWN ANIMAL, ACHES Time Seen by Provider: 09/06/20 11:15 Source of Information: Reports: Patient History Limitations: Reports: No Limitations - History of Present Illness INITIAL COMMENTS - FREE TEXT/NARRATIVE: This 79 yo female patient reports to the ED with some swelling and erythema to her right arm. The patient reports she attempted to get her skate hop yesterday when a swarm of bees or wasps attacked her. The patient reports she was stung or bitten 3 times in her right arm. The patient has noticed increased pain an redness to her arm since that time. The patient has taken some Tylenol for discomfort. The patient denies any swelling in her neck or difficulties breathing. Onset Date: 09/05/20 Duration: Constant Location: Reports: Upper Extremity, Right Quality: Reports: Ache, Dull Severity: Moderate Improves with: Reports: None Worsens with: Reports: None Context: Reports: Other Associated Symptoms: Reports: No Other Symptoms Treatments FOOD PRESERVATION SCIENTIST: Reports: Acetaminophen Right Arm Pain Score (Numeric/FACES): 6 - Related Data Allergies Allergy/AdvReac Type Severity Reaction Status Date / Time No Known Allergies Allergy Verified 03/02/20 13:50 Home Meds: Home Meds Gabapentin [Neurontin] 300 mg PO ASDIRECTED 05/03/17 [History] LORazepam 1 mg PO BID PRN 05/03/17 [History] Lisinopril 5 mg PO BEDTIME 05/03/17 [History] Multivitamin [Multivitamins] 1 tab PO DAILY 05/03/17 [History] Temazepam 1 tab PO BEDTIME PRN 05/03/17 [History] Tretinoin [Retin-A 0.025% Cream] 1 squirt TOP BEDTIME 05/03/17 [History] amLODIPine [Norvasc] 5 mg PO DAILY 05/03/17 [History] estradioL [Estradiol] 2 mg PO DAILY 05/03/17 [History] hydroCHLOROthiazide [Hydrochlorothiazide] 25 mg PO DAILY 05/03/17 [History] metFORMIN [Glucophage] 1 tab PO BID 05/03/17 [History] Hydrocodone/Acetaminophen [Hydrocodone-Acetamin 5-325 mg] 2 tab PO ASDIRECTED 03/02/20 [History] OXcarbazepine [Trileptal] 300 mg PO DAILY 03/02/20 [History] Past Medical History - Past Health History Medical/Surgical History: Denies Medical/Surgical History HEENT History: Reports: Cataract Cardiovascular History: Reports: High Cholesterol, Hypertension Respiratory History: Reports: None Gastrointestinal History: Reports: None Genitourinary History: Reports: None 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: Musculoskeletal History: Reports: None Neurological History: Reports: Neuropathy, Peripheral, Other (See Below) Other Neuro History: restless leg syndrome Psychiatric History: Reports: Depression Endocrine/Metabolic History: Reports: Diabetes, Type II, Osteopenia Hematologic History: Reports: None Immunologic History: Reports: None Oncologic (Cancer) History: Reports: None Dermatologic History: Reports: Benign Melanoma - Infectious Disease History Infectious Disease History: Reports: Chicken Pox, Measles, Mumps - Past Surgical History Head Surgeries/Procedures: Reports: None HEENT Surgical History: Reports: Cataract Surgery, Oral Surgery Other HEENT Surgeries/Procedures: patient had molar extraction 2 days ago Cardiovascular Surgical History: Reports: None Respiratory Surgical History: Reports: None GI Surgical History: Reports: Appendectomy, Colonoscopy, Other (See Below) Other GI Surgeries/Procedures: abdominoplasty Female Surgical History: Reports: Hysterectomy, Tubal Ligation Neurological Surgical History: Reports: None Musculoskeletal Surgical History: Reports: Carpal Tunnel, Shoulder Surgery Social & Family History - Family History Family Medical History: No Pertinent Family History - Caffeine Use Caffeine Use: Reports: Coffee Other Caffeine Use: 1.5 cups daily ED ROS GENERAL - Review of Systems Review Of Systems: Comprehensive ROS is negative, except as noted in HPI. ED EXAM, SKIN/RASH Exam: See Below Exam Limited By: No Limitations General Appearance: Alert, WD/WN, Mild Distress Eye Exam: Bilateral Eye: EOMI, Normal Inspection, PERRL Ears: Normal External Exam, Normal Canal, Hearing Grossly Normal, Normal TMs Nose: Normal Inspection, Normal Mucosa, No Blood Throat/Mouth: Normal Inspection, Normal Lips, Normal Teeth, Normal Gums, Normal Oropharynx, Normal Voice, No Airway Compromise Head: Atraumatic, Normocephalic Neck: Normal Inspection, Supple, Non-Tender, Full Range of Motion Respiratory/Chest: No Respiratory Distress, Lungs Clear, Normal Breath Sounds, No Accessory Muscle Use, Chest Non-Tender Cardiovascular: Normal Peripheral Pulses, Regular Rate, Rhythm, No Edema, No Gallop, No JVD, No Murmur, No Rub GI/Abdominal: Normal Bowel Sounds, Soft, Non-Tender, No Organomegaly, No Distention, No Abnormal Bruit, No Mass (Female) Exam: Deferred Rectal (Female) Exam: Deferred Back Exam: Normal Inspection, Full Range of Motion, NT Extremities: Arm Pain (right arm), Redness Neurological: Alert, Oriented, CN II-XII Intact, Normal Cognition, Normal Gait, Normal Reflexes, No Motor/Sensory Deficits Psychiatric: Normal Affect, Normal Mood Skin: Warm, Dry, Intact, Erythema (3 areas of erythem to her right arm (1 on forearm, 2 on upper arm)) Location, Skin: Upper Extremity, Right Characteristics: Erythematous Associated features: Tenderness, Swelling, Inflammation. No: Induration Lymphatic: No Adenopathy Course - Vital Signs Last Recorded V/S: Last Vital Signs Temp 97.6 F 09/06/20 11:00 Pulse 65 09/06/20 11:00 Resp 16 09/06/20 11:00 BP 141/67 H 09/06/20 11:00 Pulse Ox 96 09/06/20 11:00 Departure - Departure Time of Disposition: 11:25 Disposition: Home, Self-Care 01 Condition: Fair Clinical Impression: Cellulitis of right arm Insect stings Qualifiers: Encounter type: initial encounter Injury intent: accidental or unintentional Qualified Code(s): T63.481A - Toxic effect of venom of other arthropod, accidental (unintentional), initial encounter - Discharge Information *PRESCRIPTION DRUG MONITORING PROGRAM REVIEWED*: Not Applicable *COPY OF PRESCRIPTION DRUG MONITORING REPORT IN PATIENT PADMA: Not Applicable Instructions: Cellulitis, Adult, [id number], Bee, Wasp, or Hornet Sting, Adult Forms: ED Department Discharge Care Plan Goals: The patient was advised of the examination results during the visit. The patient was discharged with a script for Keflex (500 mg) #14 to take 1 by mouth 2 times per day for 7 days. The patient was also encouraged to take Benadryl (25 mg) every 6 hours over the next 24 hours to reduce the swelling due to the histamine response. If the patient has any additional symptoms or concerns, the patient should either return to the emergency department or visit her primary care facility. Sepsis Event Note (ED) - Evaluation Sepsis Screening Result: No Definite Risk - Focused Exam Vital Signs: Vital Signs Temp Pulse Resp BP Pulse Ox 09/06/20 11:00 97.6 F 65 16 141/67 H 96
== END 2020-09-06 11:33 | disposition home or self-care (01) ==
LOC: DL.ED 09:28
DX: T63.481A Toxic effect of venom of other arthropod, accidental (unintentional), initial encounter (principal); L03.114 Cellulitis of left upper limb; E78.00 Pure hypercholesterolemia, unspecified; I10 Essential (primary) hypertension; E11.40 Type 2 diabetes mellitus with diabetic neuropathy, unspecified; Z79.84 Long term (current) use of oral hypoglycemic drugs; Z79.899 Other long term (current) drug therapy
CPT/HCPCS: 99282; 99283